=== PATIENT | male | born 1950 | race Caucasian/White ===

== ENCOUNTER 2016-07-11 09:15 | Outpatient (CLI) | payer MEDICAID ==
[2016-07-11] MEDS ORDERED: ALBUTEROL NEB 2.5 MG/3 ML INH ONE (09:28)
== END 2016-07-11 09:16 | disposition home or self-care (01) ==
DX: J45.909 Unspecified asthma, uncomplicated (principal)
CPT/HCPCS: 94060; 94729; J7613

== ENCOUNTER 2016-12-31 18:25 | Outpatient (CLI) | payer MEDICARE, MEDICAID ==
[2016-12-31 19:25] LABS: ALBUMIN/GLOBULIN RATIO 1.3 (1.0-2.2); BILIRUBIN,TOTAL 0.6 mg/dL (0.2-1.0); BUN - BLOOD UREA NITROGEN 16 mg/dL (6-20); CALCIUM 9.2 mg/dL (8.5-10.3); CARBON DIOXIDE - CO2 30 mmol/L (21-32); CHLORIDE 101 mmol/L (101-111); CHOL/HDL RATIO 5.1 (<5.0); CHOLESTEROL 177 mg/dL; CREATININE 0.9 mg/dL (0.6-1.2); GFR - MDRD 85 (>89); GLUCOSE 124 mg/dL (70-100); HDL CHOLESTEROL 35 mg/dL; LDL/HDL RATIO 3.5 (<3.6); POTASSIUM 3.9 mmol/L (3.5-5.0); SODIUM 139 mmol/L (135-145); TOTAL PROTEIN 7.7 g/dL (6.7-8.2); TRIGLYCERIDES 95 mg/dL; VLDL CHOLESTEROL 19 mg/dL
[2016-12-31 19:34] LABS: HEMOGLOBIN A1C 0.81 g/dL
== END 2016-12-31 18:26 | disposition home or self-care (01) ==
LOC: LAB 18:25
PROVIDERS: ATTEND Nurse Practitioner Family
DX: E11.9 Type 2 diabetes mellitus without complications (principal); R60.0 Localized edema
CPT/HCPCS: 80053; 80061; 82043; 83036; 85379

== ENCOUNTER 2017-01-03 13:32 | Outpatient (CLI) | payer MEDICARE, MEDICAID ==
--- NOTE | 2017-01-03 18:11 | Ultrasound Report ---
EXAM: RIGHT LOWER EXTREMITY VENOUS ULTRASOUND EXAM DATE: 01/03/2017 02:45 PM. CLINICAL HISTORY: Right lower extremity edema COMPARISON: None. TECHNIQUE: Real-time sonographic vascular imaging was performed by the broadcast field supervisor through the lower extremity utilizing both color-flow and Doppler spectral analysis. Multiple manufacturing sales representative static wolfgang ges were saved for review. FINDINGS: Common Femoral Vein (CFV): Normal. CFV-GSV Junction: Normal. Profunda Femoral Vein (PFV): Normal. Femoral Vein (FV) Prox: Normal. Femoral Vein (FV) Mid: Normal. Femoral Vein (FV) Dist: Normal. Popliteal Vein: Normal. Posterior Tibial Veins: Normal. Peroneal Veins: Per the technologist, there was questionable thrombus within the low posterior tibial vein. This is not clearly demonstrated on submitted images. Contralateral Side CFV: Normal. Other: None. IMPRESSION: 1. Per the technologist, there was questionable thrombus within the low posterior tibial vein. This i s not clearly demonstrated on submitted images. 2. Within the remaining deep veins of the right lower extremity, there is no evidence of occlusive th rombus. 3. As indicated, ultrasound follow-up with on site radiologist supervision is recommended to further evaluate the possible posterior tibial abnormality. RADIA The above findings were discussed with Dr Zimmerman by Dr. Fili Alvares at 18:07 hrs on 01/03/17. Referring Provider Line: [phone] SITE ID: [id number]
== END 2017-01-03 13:33 | disposition home or self-care (01) ==
LOC: DI 13:32
PROVIDERS: ATTEND Nurse Practitioner Family
DX: R60.0 Localized edema (principal)

== ENCOUNTER 2017-01-06 12:55 | Outpatient (CLI) | payer MEDICARE, MEDICAID ==
--- NOTE | 2017-01-09 10:14 | Ultrasound Report ---
EXAM: [id number] US/VENR ([id number]) EXAM: RIGHT LOWER EXTREMITY VENOUS ULTRASOUND EXAM DATE: 01/03/2017 02:45 PM. CLINICAL HISTORY: Right lower extremity edema COMPARISON: None. TECHNIQUE: Real-time sonographic vascular imaging was performed by the desk clerks supervisor through the lower extremity utilizing both color-flow and Doppler spectral analysis. Multiple traveling sales representative static images were saved for review. FINDINGS: Common Femoral Vein (CFV): Normal. CFV-GSV Junction: Normal. Profunda Femoral Vein (PFV): Normal. Femoral Vein (FV) Prox: Normal. Femoral Vein (FV) Mid: Normal. Femoral Vein (FV) Dist: Normal. Popliteal Vein: Normal. Posterior Tibial Veins: Normal. Peroneal Veins: Per the technologist, there was questionable thrombus within the low posterior tibial vein. This is not clearly demonstrated on submitted images. Contralateral Side CFV: Normal. Other: None. IMPRESSION: 1. Per the technologist, there was questionable thrombus within the low posterior tibial vein. This is not clearly demonstrated on submitted images. 2. Within the remaining deep veins of the right lower extremity, there is no evidence of occlusive thrombus. 3. As indicated, ultrasound follow-up with on site radiologist supervision is recommended to further evaluate the possible posterior tibial abnormality. RADIA The above findings were discussed with Dr Zimmerman by Dr. Fili Alvares at 18 :07 hrs on 01/03/17. Referring Provider Line: [phone] SITE ID: [id number] Certified Juvenile Probation Officer: Reading Radiologist: Cedric Alvares MD Releasing Radiologist: Cedric Alvares MD Released Date Time: 01/03/17 1811 cc: NICOLE Pinzon ADDENDUM ADDENDUM: The patient returns on 01/06/2017 for additional evaluation of the right posterior tibial vein. There is sluggish flow present. The vein does completely compress, excluding a thrombus within the vein. IMPRESSION: SLOW FLOW IN THE RIGHT POSTERIOR TIBIAL VEIN, BUT NO EVIDENCE OF OCCLUSIVE THROMBUS. Addendum Certified Juvenile Probation Officer: ELENO Addendum Reading Radiologist: Emanuel Murphy MD Addendum Releasing Radiologist: Emanuel Murphy MD Addendum Released Date Time: 01/07/17 0755 [facility]
== END 2017-01-06 12:56 | disposition home or self-care (01) ==
LOC: DI 12:55
PROVIDERS: ATTEND Nurse Practitioner Family
DX: R60.0 Localized edema (principal)

== ENCOUNTER 2017-01-09 15:31 | Outpatient (CLI) | payer MEDICARE, MEDICAID ==
[2017-01-09 18:19] LABS: ALBUMIN/GLOBULIN RATIO 1.2 (1.0-2.2); BILIRUBIN,TOTAL 0.5 mg/dL (0.2-1.0); CALCIUM 8.8 mg/dL (8.5-10.3); CREATININE 1.1 mg/dL (0.6-1.2); POTASSIUM 3.9 mmol/L (3.5-5.0); TOTAL PROTEIN 6.9 g/dL (6.7-8.2)
== END 2017-01-09 15:32 | disposition home or self-care (01) ==
LOC: LAB.F 15:31
PROVIDERS: ATTEND Nurse Practitioner Family
DX: R60.0 Localized edema (principal); E11.9 Type 2 diabetes mellitus without complications
CPT/HCPCS: 36415; 80053; 82043; 83880

== ENCOUNTER 2017-01-15 09:22 | Outpatient (CLI) | payer MEDICARE, MEDICAID | END 2017-01-15 09:23 | disposition home or self-care (01) | LOC: LAB.F 09:22 | PROVIDERS: ATTEND Nurse Practitioner Family | DX: E11.9 Type 2 diabetes mellitus without complications (principal); J44.1 Chronic obstructive pulmonary disease with (acute) exacerbation | CPT/HCPCS: 36415; 82043; 83880 ==

== ENCOUNTER 2017-01-20 11:31 | Outpatient (CLI) | payer MEDICARE, MEDICAID ==
[2017-01-20 17:48] LABS: BASOPHILS % (AUTO) 0.6 %; EOSINOPHILS # (AUTO) 0.3 10^3/uL (0.0-0.7); EOSINOPHILS % (AUTO) 4.7 %; HCT - HEMATOCRIT 46.7 % (42.0-52.0); HGB - HEMOGLOBIN 15.5 g/dL (14.0-18.0); LYMPHOCYTES # (AUTO) 1.7 10^3/uL (1.5-3.5); LYMPHOCYTES % (AUTO) 23.1 %; MEAN CORPUSCULAR HEMOGLOBIN 31.1 pg (27.0-31.0); MEAN CORPUSCULAR HGB CONC 33.2 g/dL (32.0-36.0); MEAN CORPUSCULAR VOLUME 93.5 fL (80.0-94.0); MEAN PLATELET VOLUME 9.4 fL (7.4-11.4); MONOCYTES # (AUTO) 0.5 10^3/uL (0.0-1.0); MONOCYTES % (AUTO) 7.5 %; NEUTROPHILS # (AUTO) 4.7 10^3/uL (1.5-6.6); NEUTROPHILS % (AUTO) 64.1 %; NUCLEATED RED BLOOD CELLS AUTO 0.1 /100WBC; RED BLOOD COUNT 4.99 10^6/uL (4.70-6.10); RED CELL DISTRIBUTION WIDTH 14.7 % (12.0-15.0); UNCORRECTED WHITE BLOOD COUNT 7.3 x10^3/uL; WHITE BLOOD COUNT 7.3 x10^3/uL (4.8-10.8)
== END 2017-01-20 11:32 | disposition home or self-care (01) ==
LOC: LAB.F 11:31
PROVIDERS: ATTEND Nurse Practitioner Family
DX: L03.115 Cellulitis of right lower limb (principal)
CPT/HCPCS: 36415; 85025; 85651; 86140

== ENCOUNTER 2017-03-06 14:32 | Outpatient (CLI) | payer MEDICARE, MEDICAID ==
[2017-03-06 18:27] LABS: ALBUMIN/GLOBULIN RATIO 1.2 (1.0-2.2); BILIRUBIN,TOTAL 0.6 mg/dL (0.2-1.0); CALCIUM 9.3 mg/dL (8.5-10.3); CREATININE 0.9 mg/dL (0.6-1.2); POTASSIUM 3.8 mmol/L (3.5-5.0); TOTAL PROTEIN 7.8 g/dL (6.7-8.2)
== END 2017-03-06 14:33 | disposition home or self-care (01) ==
LOC: LAB.F 14:32
PROVIDERS: ATTEND Nurse Practitioner Family
DX: R60.0 Localized edema (principal)
CPT/HCPCS: 36415; 80053

== ENCOUNTER 2017-03-24 08:15 | Outpatient (CLI) | payer MEDICARE, MEDICAID | END 2017-03-24 08:16 | disposition home or self-care (01) | LOC: DI 08:15 | PROVIDERS: ATTEND Internal Medicine Cardiovascular Disease | DX: R06.09 Other forms of dyspnea (principal); I51.7 Cardiomegaly | CPT/HCPCS: 93306 ==

== ENCOUNTER 2017-12-14 08:39 | Outpatient (CLI) | payer MEDICARE, MEDICAID ==
[2017-12-14 12:02] LABS: HB2 TOTAL 13.9 g/dL; HEMOGLOBIN A1C 0.77 g/dL; HEMOGLOBIN A1C % 7.2 % (4.6-6.2)
[2017-12-14 12:30] LABS: ALBUMIN 3.2 g/dL (3.2-5.5); ALBUMIN/GLOBULIN RATIO 0.9 (1.0-2.2); ALKALINE PHOSPHATASE 58 IU/L (42-121); ALT ALANINE AMINOTRANSFERASE 18 IU/L (10-60); AST ASPARTATE AMINOTRANSFERASE 19 IU/L (10-42); BILIRUBIN,TOTAL 0.3 mg/dL (0.2-1.0); BUN - BLOOD UREA NITROGEN 18 mg/dL (6-20); CALCIUM 8.9 mg/dL (8.5-10.3); CARBON DIOXIDE - CO2 28 mmol/L (21-32); CHLORIDE 101 mmol/L (101-111); CHOL/HDL RATIO 5.1 (<5.0); CHOLESTEROL 175 mg/dL; CREATININE 1.1 mg/dL (0.6-1.2); GFR - MDRD 67 (>89); GLUCOSE 160 mg/dL (70-100); HDL CHOLESTEROL 34 mg/dL; LDL CHOLESTEROL,CALCULATED 118 mg/dL; LDL/HDL RATIO 3.5 (<3.6); SODIUM 137 mmol/L (135-145); TOTAL PROTEIN 6.9 g/dL (6.7-8.2); VLDL CHOLESTEROL 23 mg/dL
== END 2017-12-14 08:40 | disposition home or self-care (01) ==
LOC: LAB.F 08:39
PROVIDERS: ATTEND Family Medicine
DX: Z12.5 Encounter for screening for malignant neoplasm of prostate (principal); E11.9 Type 2 diabetes mellitus without complications; J44.9 Chronic obstructive pulmonary disease, unspecified; I10 Essential (primary) hypertension
CPT/HCPCS: 80053; 80061; 82043; 83036; G0103; 36415; 83721; 84153

== ENCOUNTER 2019-05-02 10:18 | Outpatient (CLI) | payer MEDICARE, MEDICAID ==
[2019-05-02 17:45] LABS: BASOPHILS % (AUTO) 0.5 %; EOSINOPHILS # (AUTO) 0.4 10^3/uL (0.0-0.7); EOSINOPHILS % (AUTO) 4.8 %; HGB - HEMOGLOBIN 14.1 g/dL (14.0-18.0); LYMPHOCYTES # (AUTO) 1.8 10^3/uL (1.5-3.5); LYMPHOCYTES % (AUTO) 24.5 %; MEAN CORPUSCULAR HEMOGLOBIN 30.9 pg (27.0-31.0); MEAN CORPUSCULAR HGB CONC 31.4 g/dL (32.0-36.0); MEAN CORPUSCULAR VOLUME 98.5 fL (80.0-94.0); MEAN PLATELET VOLUME 10.9 fL (7.4-11.4); MONOCYTES # (AUTO) 0.6 10^3/uL (0.0-1.0); MONOCYTES % (AUTO) 7.5 %; NEUTROPHILS # (AUTO) 4.6 10^3/uL (1.5-6.6); NEUTROPHILS % (AUTO) 62.2 %; PLT - PLATELET COUNT 237 10^3/uL (130-450); RED BLOOD COUNT 4.56 10^6/uL (4.70-6.10); RED CELL DISTRIBUTION WIDTH 13.9 % (12.0-15.0); WHITE BLOOD COUNT 7.4 x10^3/uL (4.8-10.8)
[2019-05-02 18:30] LABS: HB2 TOTAL 14.5 g/dL; HEMOGLOBIN A1C 0.75 g/dL; HEMOGLOBIN A1C % 6.9 % (4.6-6.2)
[2019-05-02 18:40] LABS: ALBUMIN 4.3 g/dL (3.2-5.5); ALBUMIN/GLOBULIN RATIO 1.3 (1.0-2.2); ALKALINE PHOSPHATASE 73 IU/L (42-121); ALT ALANINE AMINOTRANSFERASE 16 IU/L (10-60); AST ASPARTATE AMINOTRANSFERASE 13 IU/L (10-42); BILIRUBIN,TOTAL 0.7 mg/dL (0.2-1.0); BUN - BLOOD UREA NITROGEN 24 mg/dL (6-20); CARBON DIOXIDE - CO2 30 mmol/L (21-32); CHLORIDE 98 mmol/L (101-111); CHOL/HDL RATIO 5.9 (<5.0); CHOLESTEROL 184 mg/dL; CREATININE 1.1 mg/dL (0.6-1.2); GFR - MDRD 67 (>89); GLUCOSE 138 mg/dL (70-100); HDL CHOLESTEROL 31 mg/dL; LDL CHOLESTEROL,CALCULATED 127 mg/dL; LDL/HDL RATIO 4.1 (<3.6); SODIUM 137 mmol/L (135-145); TOTAL PROTEIN 7.7 g/dL (6.7-8.2); VLDL CHOLESTEROL 26 mg/dL
== END 2019-05-02 10:19 | disposition home or self-care (01) ==
LOC: LAB.S 10:18
PROVIDERS: ATTEND Registered Nurse
DX: J44.9 Chronic obstructive pulmonary disease, unspecified (principal); Z87.891 Personal history of nicotine dependence; E66.01 Morbid (severe) obesity due to excess calories; E11.9 Type 2 diabetes mellitus without complications; R60.9 Edema, unspecified; I10 Essential (primary) hypertension
CPT/HCPCS: 36415; 80053; 80061; 83036; 83721; 84443; 85025

== ENCOUNTER 2020-05-24 11:53 | Outpatient (CLI) | payer MEDICARE, MEDICAID ==
[2020-05-24 14:39] LABS: BASOPHILS # (AUTO) 0.1 10^3/uL (0.0-0.1); BASOPHILS % (AUTO) 0.7 %; EOSINOPHILS # (AUTO) 0.2 10^3/uL (0.0-0.7); EOSINOPHILS % (AUTO) 2.6 %; HGB - HEMOGLOBIN 13.5 g/dL (14.0-18.0); LYMPHOCYTES # (AUTO) 1.7 10^3/uL (1.5-3.5); LYMPHOCYTES % (AUTO) 18.5 %; MEAN CORPUSCULAR HEMOGLOBIN 33.2 pg (27.0-31.0); MEAN CORPUSCULAR HGB CONC 32.9 g/dL (32.0-36.0); MEAN CORPUSCULAR VOLUME 100.7 fL (80.0-94.0); MEAN PLATELET VOLUME 10.9 fL (7.4-11.4); MONOCYTES # (AUTO) 0.7 10^3/uL (0.0-1.0); MONOCYTES % (AUTO) 7.4 %; NEUTROPHILS # (AUTO) 6.5 10^3/uL (1.5-6.6); NEUTROPHILS % (AUTO) 70.4 %; PLT - PLATELET COUNT 253 10^3/uL (130-450); RED BLOOD COUNT 4.07 10^6/uL (4.70-6.10); RED CELL DISTRIBUTION WIDTH 13.5 % (12.0-15.0); WHITE BLOOD COUNT 9.2 x10^3/uL (4.8-10.8)
[2020-05-24 16:08] LABS: ALBUMIN 4.3 g/dL (3.2-5.5); ALBUMIN/GLOBULIN RATIO 1.2 (1.0-2.2); ALKALINE PHOSPHATASE 82 IU/L (42-121); ALT ALANINE AMINOTRANSFERASE 13 IU/L (10-60); AST ASPARTATE AMINOTRANSFERASE 14 IU/L (10-42); BILIRUBIN,TOTAL 0.7 mg/dL (0.2-1.0); BUN - BLOOD UREA NITROGEN 16 mg/dL (6-20); CALCIUM 9.6 mg/dL (8.5-10.3); CARBON DIOXIDE - CO2 29 mmol/L (21-32); CHLORIDE 101 mmol/L (101-111); CHOL/HDL RATIO 3.9 (<5.0); CHOLESTEROL 97 mg/dL; CREATININE 1.1 mg/dL (0.6-1.2); GLUCOSE 110 mg/dL (70-100); HDL CHOLESTEROL 25 mg/dL; LDL CHOLESTEROL,CALCULATED 42 mg/dL; LDL/HDL RATIO 1.7 (<3.6); SODIUM 141 mmol/L (135-145); TOTAL PROTEIN 7.9 g/dL (6.7-8.2); VLDL CHOLESTEROL 30 mg/dL
[2020-05-24 16:16] LABS: CREATININE,URINE 48.8 mg/dL; MICROALBUM/CREATININE RATIO,UR 131.1 ug/mg (<30.0); MICROALBUMIN,URINE 6.4 mg/dL (0-300.0)
[2020-05-24 21:04] LABS: HEMOGLOBIN A1c% 6.3 % (4.27-6.07)
== END 2020-05-24 11:54 | disposition home or self-care (01) ==
LOC: LAB.S 11:53
PROVIDERS: ATTEND Registered Nurse
DX: E78.5 Hyperlipidemia, unspecified (principal); Z12.5 Encounter for screening for malignant neoplasm of prostate; E11.42 Type 2 diabetes mellitus with diabetic polyneuropathy; J44.9 Chronic obstructive pulmonary disease, unspecified; I10 Essential (primary) hypertension
CPT/HCPCS: 36415; 80053; 80061; 82043; 82570; 83036; 84443; 85025; G0103; 83721; 84153

== ENCOUNTER 2020-10-15 08:00 | Outpatient (CLI) | payer MEDICARE, MEDICAID ==
--- NOTE | 2020-10-15 16:55 | XRAY Report ---
PROCEDURE: Hip w/Pelvis 1V LT INDICATIONS: LEFT HIP PAIN TECHNIQUE: AP pelvis with lateral view(s) of the left hip(s). COMPARISON: None. FINDINGS: Bones: No fractures or dislocations. Pelvic ring appears intact. No suspicious bony lesions. Ther e is moderate to severe left and moderate right arthritic narrowing of the hip joints bilaterally. Soft tissues: The visualized bowel gas pattern is normal. No suspicious soft tissue calcifications. IMPRESSION: No visualized acute fracture or dislocation. However, occult injury cannot be excluded. Recommend short interval imaging follow-up in 7-10 days as clinically indicated for additional evalua tion. Reviewed by: Letitia Pierce MD on 10/15/2020 4:54 PM PDT Approved by: Letitia Pierce MD on 10/15/2020 4:54 PM PDT Station ID: [id number]
== END 2020-10-15 23:59 | disposition home or self-care (01) ==
LOC: DI.S 08:00
PROVIDERS: ATTEND Physician Assistant Medical
DX: M25.552 Pain in left hip (principal)

== ENCOUNTER 2021-02-06 14:19 | Emergency (ER) | payer MEDICARE, MEDICAID ==
[2021-02-06] MEDS ORDERED: SODIUM CHLORIDE 0.9% 1,000 ML IV STA ×3 (14:40→16:53)
[2021-02-06 15:24] LABS: BASOPHILS % (AUTO) 0.1 %; EOSINOPHILS % (AUTO) 0.1 %; HCT - HEMATOCRIT 24.1 % (42.0-52.0); HGB - HEMOGLOBIN 7.9 g/dL (14.0-18.0); LYMPHOCYTES # (AUTO) 0.4 10^3/uL (1.5-3.5); LYMPHOCYTES % (AUTO) 2.5 %; MEAN CORPUSCULAR HGB CONC 32.8 g/dL (32.0-36.0); MEAN CORPUSCULAR VOLUME 97.6 fL (80.0-94.0); MONOCYTES # (AUTO) 0.8 10^3/uL (0.0-1.0); MONOCYTES % (AUTO) 5.5 %; NEUTROPHILS # (AUTO) 12.9 10^3/uL (1.5-6.6); NEUTROPHILS % (AUTO) 90.9 %; PLT - PLATELET COUNT 254 10^3/uL (130-450); RED BLOOD COUNT 2.47 10^6/uL (4.70-6.10); RED CELL DISTRIBUTION WIDTH 15.9 % (12.0-15.0); WHITE BLOOD COUNT 14.3 x10^3/uL (4.8-10.8)
--- NOTE | 2021-02-06 15:33 | ED Physician Documentation ---
History of Present Illness - Stated complaint Stated Complaint: MALE - Chief complaint Chief Complaint: Abd Pain - Additonal information Additional information: 70-year-old male presents the emergency department for evaluation of an urea as well as uncontrolled diarrhea. He does have a history of renal cell carcinoma and has been undergoing at least 10 courses of radiation secondary to this. Reports that he was hospitalized at [place] about 3 weeks ago. Patient states that he has been having uncontrolled diarrhea for nearly 3 weeks and has been an uric for about 24 hours. He stated he only made 4 ounces of urine yesterday. Patient presented to the [facility] clinic today for initiation of his biologic in the treatment of his renal cell cancer carcinoma but based on the history of an urea as well as worsening diarrhea and acute kidney injury he was referred to the ER for further evaluation. Patient denies any fevers melena or hematochezia. He is globally poor historian however. Much of the history is obtained from the chart and in conversation with his Oncologist Review of Systems Constitutional: denies: Fever, Chills Eyes: reports: Reviewed and negative Nose: reports: Reviewed and negative Throat: reports: Reviewed and negative Cardiac: reports: Reviewed and negative Respiratory: reports: Reviewed and negative GI: reports: Diarrhea. denies: Hematemesis, Bloody / black stool : reports: Other (anuria) Skin: denies: Rash, Lesions Musculoskeletal: reports: Reviewed and negative Neurologic: reports: Reviewed and negative PD PAST MEDICAL HISTORY - Past Medical History Respiratory: COPD - Present Medications Home Medications: Ambulatory Orders Medication Instructions Recorded Confirmed Acetaminophen [Acetaminophen Extra 500 mg PO UD 01/30/21 02/06/21 Strength] Fluticasone Furoate [Arnuity 200 mcg IH UD 01/30/21 02/06/21 Ellipta] Gabapentin [Neurontin] 100 mg PO TID 01/30/21 02/06/21 Lactulose 30 gm PO PRN PRN 01/30/21 02/06/21 Metoprolol Succinate [Toprol Xl] 100 mg PO BID 01/30/21 02/06/21 Montelukast [Singulair] 1 tab PO DAILY PM 01/30/21 02/06/21 Naloxone HCl [Narcan] 4 mg NS PRN PRN 01/30/21 02/06/21 Rosuvastatin Calcium [Crestor] 10 mg PO DAILY PM 01/30/21 02/06/21 Umeclidinium Golden [Incruse 62.5 mcg IH UD 01/30/21 02/06/21 Ellipta] amLODIPine [Norvasc] 5 mg PO DAILY 01/30/21 02/06/21 oxyCODONE [Roxicodone] 5 mg PO Q4-6H PRN 01/30/21 02/06/21 Furosemide [Lasix] 1 tab PO DAILY 02/06/21 02/06/21 Gabapentin [Neurontin] 1 tab PO DAILY 02/06/21 02/06/21 Lisinopril [Zestril] 1 tab PO DAILY 02/06/21 02/06/21 Potassium Chloride [Micro-K] 1 tab PO DAILY 02/06/21 02/06/21 Rosuvastatin Calcium [Crestor] 1 tab PO DAILY 02/06/21 02/06/21 amLODIPine [Norvasc] 1 tab PO DAILY 02/06/21 02/06/21 metFORMIN [Glucophage] 1 tab PO DAILY 02/06/21 02/06/21 oxyCODONE ER [OxyCONTIN] 1 tab PO TID 02/06/21 02/06/21 - Allergies Allergies/Adverse Reactions: Allergies Allergy/AdvReac Type Severity Reaction Status Date / Time No Known Drug Allergies Allergy Verified 02/06/21 14:40 - Social History Smoking Status: Former smoker PD ED PE EXPANDED - General General: Alert, Disheveled, poorly kept - Cardiac Cardiac: Tachy, Radial strong equal, Cap refill < 2 sec - Respiratory Respiratory: Clear to ausultation geoffrey. No: Distress, Labored - Abdomen Abdomen: Normal Bowel sounds, Tender to palpation, Generalized/diffuse (Diffuse abdominal tenderness without guarding or rebound. Nonfocal.) - Derm Derm: Normal color, Warm and dry. No: Rash - Extremities Extremities: Normal. No: Deformity - Neuro Neuro: Alert and Oriented X 3, CNII-XII intact - GCS Eye Opening: Spontaneous Motor: Obeys Commands Verbal: Oriented Total: 15 Results - Vitals Vitals: Vital Signs - 24 hr 02/06/21 02/06/21 02/06/21 14:32 18:49 20:17 Temperature 36.5 C 36.2 C L 36.6 C Heart Rate 105 H 84 87 Respiratory 16 20 18 Rate Blood Pressure 90/57 L 105/61 107/61 O2 Saturation 95 91 L 92 Oxygen O2 Source Room air - Labs Labs: Laboratory Tests 02/06/21 02/06/21 02/06/21 15:10 15:10 16:46 WBC 14.3 H RBC 2.47 L Hgb 7.9 L Hct 24.1 L MCV 97.6 H MCH 32.0 H MCHC 32.8 RDW 15.9 H Plt Count 254 MPV 10.0 Neut # (Auto) 12.9 H Lymph # (Auto) 0.4 L Curry # (Auto) 0.8 Eos # (Auto) 0.0 Baso # (Auto) 0.0 Absolute Nucleated RBC 0.00 Nucleated RBC % 0.0 Sodium 131 L Potassium 4.4 Chloride 96 L Carbon Dioxide 21 Anion Gap 14.0 H BUN 52 H Creatinine 3.2 H Estimated GFR (MDRD) 19 L Glucose 137 H Calcium 8.7 Total Bilirubin 1.8 H AST 261 H ALT 193 H Alkaline Phosphatase 324 H Total Protein 7.0 Albumin 2.7 L Globulin 4.3 H Albumin/Globulin Ratio 0.6 L Lipase 24 Urine Color DARK YELLOW Urine Clarity CLEAR Urine pH 5.0 Ur Specific [place] 1.020 Urine Protein TRACE Urine Glucose (UA) NEGATIVE Urine Ketones NEGATIVE Urine Occult Blood NEGATIVE Urine Nitrite NEGATIVE Urine Bilirubin NEGATIVE Urine Urobilinogen 1 (NORMAL) Ur Leukocyte Esterase NEGATIVE Ur Microscopic Review NOT INDICATED Urine Culture Comments NOT INDICATED Nasal Adenovirus (PCR) Nasal B. parapertussis DNA (PCR) Nasal Coronavir 229E PCR Nasal Coronavir HKU1 PCR Nasal Coronavir NL63 PCR Nasal Coronavir OC43 PCR Nasal Enterovir/Rhinovir PCR Nasal Influenza B PCR Nasal Influenza A PCR Nasal Parainfluen 1 PCR Nasal Parainfluen 2 PCR Nasal Parainfluen 3 PCR Nasal Parainfluen 4 PCR Nasal RSV (PCR) Nasal B.pertussis DNA PCR Nasal C.pneumoniae (PCR) Baljit Human Metapneumo PCR Nasal M.pneumoniae (PCR) Nasal SARS-CoV-2 (PCR) 02/06/21 02/06/21 17:35 18:21 WBC RBC Hgb Hct MCV MCH MCHC RDW Plt Count MPV Neut # (Auto) Lymph # (Auto) Curry # (Auto) Eos # (Auto) Baso # (Auto) Absolute Nucleated RBC Nucleated RBC % Sodium 133 L Potassium 4.3 Chloride 102 Carbon Dioxide 20 L Anion Gap 11.0 BUN 52 H Creatinine 3.0 H Estimated GFR (MDRD) 21 L Glucose 119 H Calcium 8.3 L Total Bilirubin 1.9 H AST 254 H ALT 183 H Alkaline Phosphatase 343 H Total Protein 6.5 L Albumin 2.4 L Globulin 4.1 Albumin/Globulin Ratio 0.6 L Lipase 25 Urine Color Urine Clarity Urine pH Ur Specific [place] Urine Protein Urine Glucose (UA) Urine Ketones Urine Occult Blood Urine Nitrite Urine Bilirubin Urine Urobilinogen Ur Leukocyte Esterase Ur Microscopic Review Urine Culture Comments Nasal Adenovirus (PCR) NOT DETECTED Nasal B. parapertussis DNA (PCR) NOT DETECTED Nasal Coronavir 229E PCR NOT DETECTED Nasal Coronavir HKU1 PCR NOT DETECTED Nasal Coronavir NL63 PCR NOT DETECTED Nasal Coronavir OC43 PCR NOT DETECTED Nasal Enterovir/Rhinovir PCR NOT DETECTED Nasal Influenza B PCR NOT DETECTED Nasal Influenza A PCR NOT DETECTED Nasal Parainfluen 1 PCR NOT DETECTED Nasal Parainfluen 2 PCR NOT DETECTED Nasal Parainfluen 3 PCR NOT DETECTED Nasal Parainfluen 4 PCR NOT DETECTED Nasal RSV (PCR) NOT DETECTED Nasal B.pertussis DNA PCR NOT DETECTED Nasal C.pneumoniae (PCR) NOT DETECTED Baljit Human Metapneumo PCR NOT DETECTED Nasal M.pneumoniae (PCR) NOT DETECTED Nasal SARS-CoV-2 (PCR) NOT DETECTED - Rads (name of study) ABD US Radiology: See rad report (Positive pericholecystic fluid. Significant gallbladder distention with sludge consistent with acute cholecystitis.) CT abd Radiology: Final report received (Distended gallbladder with poorly pericholecystic inflammatory change likely reflecting acute cholecystitis. Metastatic disease. Bulky retroperitoneal adenopathy up to 8.5 cm. Lytic lesion left iliac bone. Right basilar atelectasis or infiltrate and small pleural effusion.) PD MEDICAL DECISION MAKING - ED course Complexity details: reviewed results, d/w patient, d/w cognos consultant ED course: 70-year-old gentleman has a history of renal cell carcinoma status post radiation therapy with known mets to the T and lumbar spine. MRI completed 1 month ago at [facility] showed significant osseous metastatic lesions with epidural extension particularly between T3 and T8. Gentleman presents the emergency department with uncontrolled diarrhea for a number of weeks and findings of acute kidney injury likely prerenal. However he is also reported and urea. ED bladder scan shows residual of almost 900 mils. Patient does not have the sensation of needing to void. This is concerning for epidural extension and worsening metastatic disease. Unable to do an MRI here at [facility]. 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 I have spoken with Dr. Reyna Martines oncologist who feels that pt needs transfer to higher level of care with neurosurgical/spinal evaluation avaliability 2 liters crystalloid ordered empirically for PETRA. A non contrast-ct ordered for better evaluation of abdomen in the setting of diarrhea and LFT. A abd US also ordered to evaluate LFT's concerning for obstruction 1530: CT concerning for acute cholecystitis. Abdominal ultrasound is pending. 3 g of Unasyn have been ordered empirically. 1540: Spoke with Dr. Cedeno hospitalist at [facility]. She graciously agrees to accept the patient in transfer for further evaluation of his metastatic disease burden, acute kidney injury, concern for spinal cord impingement in the setting of metastatic disease as well as acute cholecystitis. Patient will be transferred via ALS. Departure - Departure Disposition: 02 Transfer Acute Care Hosp Clinical Impression: PETRA (acute kidney injury), Elevated LFTs, Urinary retention, Metastatic cancer to spine, Acute cholecystitis Diarrhea Qualifiers: Diarrhea type: unspecified type Qualified Code(s): R19.7 - Diarrhea, unspecified
[2021-02-06 15:34] LABS: ALBUMIN 2.7 g/dL (3.2-5.5); ALBUMIN/GLOBULIN RATIO 0.6 (1.0-2.2); BILIRUBIN,TOTAL 1.8 mg/dL (0.2-1.0); CALCIUM 8.7 mg/dL (8.5-10.3); CREATININE 3.2 mg/dL (0.6-1.2); POTASSIUM 4.4 mmol/L (3.5-5.0)
[2021-02-06] MEDS ORDERED: HYDROmorphone 1 MG/ML CARPUJECT IVP STA ×4 (15:56→19:32)
[2021-02-06 16:52] LABS: BILIRUBIN,URINE NEGATIVE (NEGATIVE); GLUCOSE, URINE (UA) NEGATIVE (NEGATIVE); KETONES,URINE (UA) NEGATIVE (NEGATIVE); LEUKOCYTE ESTERASE, URINE NEGATIVE (NEGATIVE); NITRITE,URINE NEGATIVE (NEGATIVE); OCCULT BLOOD,URINE NEGATIVE (NEGATIVE); PROTEIN,URINE TRACE mg/dL (NEGATIVE); UROBILINOGEN,URINE 1 (NORMAL) E.U./dL (NORMAL)
[2021-02-06 16:54] LABS: CLARITY,URINE CLEAR (CLEAR)
--- NOTE | 2021-02-06 17:03 | CT Report ---
PROCEDURE: Abdomen/Pelvis WO INDICATIONS: diarrhea; cancer; elevated LFT TECHNIQUE: Noncontrast 5 mm thick sections acquired from the diaphragms to the symphysis. 5 mm paolo nal and sagittal reformats were then performed. For radiation dose reduction, the following was used : automated exposure control, adjustment of mA and/or kV according to patient size. COMPARISON: None. FINDINGS: Image quality: Excellent. ABDOMEN: Lung bases: Small right basilar pleural effusion associated right basilar atelectasis and or infiltra te. Left lung bases clear. Solid organs: Liver and spleen are normal in size. Gallbladder is distended, and there is perichole cystic inflammatory change, probably reflecting acute cholecystitis. Pancreas is normal in contours. 2.7 cm right adrenal solid nodule present. Kidneys are normal in size, without hydronephrosis or ne phrolithiasis. Small 1.2 cm left renal cyst is slightly hyperdense. No hydronephrosis.r Peritoneum and bowel: Unenhanced bowel loops demonstrate normal wall thickness and caliber. No free fluid or air. Moderate fecal debris in the rectum Nodes and vessels: Multiple retroperitoneal adenopathy, largest measures up to 8.5 x 5.7 cm. Miscellaneous: No ventral hernias. PELVIS: Genitourinary: Bladder wall thickness is normal. Miscellaneous: No inguinal hernias or adenopathy. Bones: Lytic lesion associated with the left iliac bone has large soft tissue component measuring 8.0 x 5.8 cm in total IMPRESSION: 1. Distended gallbladder with pericholecystic inflammatory change probably reflects acute cholecystit is. Correlate with ultrasound findings. 2. Metastatic disease. There is bulky retroperitoneal adenopathy measuring up to 8.5 cm. Lytic lesion in left iliac bone associated with a large soft tissue component measuring 8 cm overall. Right adren al metastasis measures 2.7 cm 3. Right basilar atelectasis and or infiltrate with small pleural effusion. Reviewed by: Davey Kim MD on 02/06/2021 4:02 PM RYAN Approved by: Davey Kim MD on 02/06/2021 4:02 PM RYAN Station ID: [id number]
[2021-02-06] MEDS ORDERED: AMPICILLIN/SULBACTAM 3 GM in SODIUM CHLORIDE 0.9% MINIBAG 100 ML IV STA (17:31)
--- NOTE | 2021-02-06 18:04 | Ultrasound Report ---
PROCEDURE: Abdomen Limited INDICATIONS: acute yoni TECHNIQUE: Real-time focused scanning was performed of the abdomen, with image documentation. COMPARISON: CT abdomen and pelvis from the same date FINDINGS: The gallbladder is distended. There is gallbladder wall edema and thickening. The wall of the gallbladder measures approximately 5 mm. There is diffuse gallbladder sludge. There are dilated i ntrahepatic ducts. The extrahepatic duct is dilated, measuring 11.5 mm at the level of the common geoffrey e duct and 6 mm at the level of the common hepatic duct. There is ascitic fluid immediately adjacent to the gallbladder. IMPRESSION: 1. Findings are highly suspicious for acalculous acute cholecystitis. 2. Dilatation of the biliary tree. Question common duct stone. Reviewed by: Benito Herrera MD on 02/06/2021 6:02 PM PDT Approved by: Benito Herrera MD on 02/06/2021 6:02 PM PDT Station ID: [id number]
[2021-02-06 18:40] LABS: ALBUMIN 2.4 g/dL (3.2-5.5); ALBUMIN/GLOBULIN RATIO 0.6 (1.0-2.2); BILIRUBIN,TOTAL 1.9 mg/dL (0.2-1.0); CALCIUM 8.3 mg/dL (8.5-10.3); POTASSIUM 4.3 mmol/L (3.5-5.0); TOTAL PROTEIN 6.5 g/dL (6.7-8.2)
[2021-02-06 19:02] LABS: B. PARAPERTUSSIS- RESP PCR PAN NOT DETECTED; B. PERTUSSIS- RESP PCR PANEL NOT DETECTED; C. PNEUMONIAE- RESP PCR PANEL NOT DETECTED; CORONAVIRUS 229E-RESP PCR NOT DETECTED; CORONAVIRUS HKU1-RESP PCR NOT DETECTED; CORONAVIRUS NL63-RESP PCR NOT DETECTED; CORONAVIRUS OC43-RESP PCR NOT DETECTED; HUMAN METAPNEUMOVIRUS NOT DETECTED; INFLUENZA A- RESP PCR PANEL NOT DETECTED; INFLUENZA B - RESP PCR PANEL NOT DETECTED; M. PNEUMONIAE- RESP PCR PANEL NOT DETECTED; PARAINFLUENZA VIRUS 1 NOT DETECTED; PARAINFLUENZA VIRUS 2 NOT DETECTED; PARAINFLUENZA VIRUS 3 NOT DETECTED; PARAINFLUENZA VIRUS 4 NOT DETECTED; RHINOVIRUS/ENTEROVIRUS NOT DETECTED; RSV- RESP PCR PANEL NOT DETECTED; SARS-CoV-2 -RESP PCR PANEL NOT DETECTED
[2021-02-06 20:18] VITALS: BP 107/61
== END 2021-02-06 20:28 | disposition short-term general hospital (02) ==
LOC: ED 14:19
DX: N17.9 Acute kidney failure, unspecified (principal); R19.7 Diarrhea, unspecified; R33.9 Retention of urine, unspecified; R74.8 Abnormal levels of other serum enzymes; K81.0 Acute cholecystitis; C64.9 Malignant neoplasm of unspecified kidney, except renal pelvis; C79.51 Secondary malignant neoplasm of bone; Z20.822 Contact with and (suspected) exposure to COVID-19; Z87.891 Personal history of nicotine dependence
CPT/HCPCS: 0202U; 36415; 51702; 80053; 81001; 81003; 81599; 83690; 85025; 87045; 87046; 87086; 87493; 99284

== ENCOUNTER 2021-02-06 20:20 | Outpatient (CLI) | payer MEDICARE, MEDICAID | END 2021-02-06 20:21 | disposition short-term general hospital (02) | LOC: EMS 20:20 | PROVIDERS: ATTEND Registered Nurse | DX: Z74.01 Bed confinement status (principal); C64.9 Malignant neoplasm of unspecified kidney, except renal pelvis; C79.51 Secondary malignant neoplasm of bone; K81.9 Cholecystitis, unspecified; R19.7 Diarrhea, unspecified; R50.9 Fever, unspecified | CPT/HCPCS: A0425; A0426 ==